=== PATIENT | male | born 1935 | race Caucasian/White ===

== ENCOUNTER 2024-01-02 06:00 | Day surgery (SDC) | payer OTHER, SELFPAY ==
[2024-01-02] VITALS (11 sets, daily range): BP systolic 91–123; BP diastolic 56–82; BMI 34.1
[2024-01-02] MEDS: LOW STRENGTH ASPIRIN 81 MG PO (07:15)
--- NOTE | 2024-01-02 08:28 | ITS.CL.CATH ---
Advertising Inserter - Catheterization
Cardiac Catheterization
Procedure Report:
LEFT HEART CATHETERIZATION
Date of Procedure: January 02, 2024
Procedures performed:
1: Coronary angiography
2: Left ventricular hemodynamic assessment
Primary Care Physician: Dr. Pato Diaz
Primary Special Officer: Dr. Kali Kessler
INDICATION: The patient is an 88-year-old man with a past medical history significant for pacemaker placement for third-degree AV block who presents with progressive symptomatic aortic stenosis. Echocardiography shows severe aortic valvular
stenosis with dropping LV systolic function. Ejection fraction was normal at 55 to 60% in July 2022. On the most recent echo from December 27 the LV function has dropped to 35 to 40%. The mean gradient across the aortic valve is 58 mmHg. There
is moderate to severe mitral regurgitation also. This is new as compared to no mitral regurgitation on July 2022 echo.
ACCESS: The patient was prepped and draped in usual sterile fashion. A 6 Mohawk sheath was placed in the right radial artery using the Seldinger over the wire technique.
HEMODYNAMIC FINDINGS (mmHg):
LV(s/d,EDP): 167/14, 22
Ao(s/d,m): 105/57, 75
Mean aortic valve gradient on pullback: 45 mmHg
ANGIOGRAPHIC FINDINGS:
Single-plane Left Ventriculography in DE [place] CRUZ Projection: Not done
Coronary Angiography:
Dominance: Right
Left Main: Normal
Left Anterior Descending: The left anterior descending artery is a medium to large caliber vessel that gives rise to 1 major fairly large diagonal branch which takes off from the midportion. These vessels have mild luminal irregularities with no
focal obstructive disease.
Left Circumflex: The circumflex is a relatively large nondominant system that gives rise to a very large bifurcating first obtuse marginal branch. These vessels are widely patent.
Right Coronary: The right coronary artery is a medium caliber dominant vessel that gives rise to a small caliber posterior descending artery and posterior left ventricular branch system. These vessels are widely patent.
Fluoroscopy Time (min): 1.8
Radiation Dose (mGy): 214
DAP (Gy.cm2): 14
Closure device: None. A TR band was applied for hemostasis at the right wrist.
Complications: None.
ASSESSMENT:
1: Very mild nonobstructive coronary artery disease.
2: Severe aortic valvular stenosis.
CONCLUSIONS and RECOMMENDATIONS:
1: Proceed with TAVR evaluation. Given the new LV systolic dysfunction along with RV pacing and development of severe MR, we may need to address the mitral valve and/or cardiac resynchronization therapy after treating his severe aortic stenosis.
Hopefully his EF and MR will improve post aortic valve intervention.
Josue Montero M.D.
Copy to: Dr. Pato Diaz
--- NOTE | 2024-01-02 13:20 | CONSULT.STRU ---
Consultation
-
Date/Time Consultation Requested: 01/02/2024 0900
Date/Time Consultation Performed: 01/02/2024 1000
Requesting Provider: Dr. Winston MD
Performing Provider: BRANDIE Marie
Reason for Consultation: Aortic Stenosis/ TAVR evaluation
Patient History
Physicians
Family Physician: Dr. Pato Diaz
Outpatient Oil Well Shooter: Dr. Kali Kessler
Primary Oil Well Shooter: Dr. Kali Kessler
History of Present Illness
Mr. Singh is a very pleasant 88yo gentleman with known history of aortic stenosis with progressive fatigue over the past 6 months. He denies chest pain, palpitations, PND, orthopnea and edema. He has had no heart failure admission. Main medical
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 In general he feels he is in good health. His echocardiogram was notable for aortic valve
stenosis, PG/M.6/57.6, ANGELINE :0.57, EF: 35-40%. He also has mild AI, Mod-Severe MR and Mild to moderate TR, Cardiac cath today with no obstructive CAD.
Reviewed the pathophysiology of aortic stenosis with the patient and his daughter. Explained the treatment options of SAVR and TAVR. Explained the TAVR evaluation process including follow up BMP, CT TAVR scan, CT surgery consult and Heart Team
discussion. Provided with script for BMP next week, script and appointment for CT TAVR, Consult appointment with Dr. Mclean and a copy of the TAVR education booklet with contact information. Allowed for and answered questions.
Past Medical History
Past Medical History: Valvular Disease (Critical Aortic Stenosis, Mild AI, Moderate to severe MR) and Other
Right BBB, AV Blocl
DJD
Osteoarthritis
Past Surgical History
Past Surgical History: Orthopedic (bilateral shoulder repair, bilateral carpel tunnel release, bilateral TKR, Right THR, back surgery) and Other
Lap choleycystectomy
Cataract extraction
excision of pilonidal cyst
[facility] 12/21/2020
Dental History
Dr. Cox - regular dental care
Family History
Mother: at Age (100yo) and Cause of (Alzheimers)
Father: at Age (77yo) and Cause of (gangrenous gallbladder/sepsis)
Social History
Alcohol: None
Drug: None
Tobacco: Former Smoker (quit 1962)
Personal:
Living: With Family ( and adult son)
Employment: Retired
Allergies
Allergy/AdvReac Type Severity Reaction Status Date / Time
adhesive Allergy Intermediate Rash Verified 01/02/24 06:31
Home Medications
�Medication �Instructions �Recorded �Confirmed �Type
Prevagen 1 cap PO DAILY 12/03/20 01/02/24 History
ascorbic acid (vitamin C) 500 mg 500 mg PO DAILY 12/03/20 01/02/24 History
tablet (Vitamin C)
aspirin 81 mg tablet,delayed 81 mg PO DAILY 12/03/20 01/02/24 History
release (Aspir-Low)
cholecalciferol (vitamin D3) 25 1,000 units PO DAILY 12/03/20 01/02/24 History
mcg (1,000 unit) tablet
multivitamin 1 ea PO DAILY 12/03/20 01/02/24 History
vitamin E (dl, acetate) 180 mg 400 units PO DAILY 12/03/20 01/02/24 History
(400 unit) capsule
STS%
STS %: 2.74%
Review of Systems
-
History Source: Patient and Family
General: Reports Fatigue; Denies Fever or Weight Loss
HEENT: Reports No Symptoms; Denies Visual Changes
Respiratory: Reports No Symptoms; Denies SOB, KEVIN, Asthma or PND
Cardiac: Reports No Symptoms; Denies Chest Pain, Palpitations or Edema
Abdomen/GI: Reports No Symptoms; Denies Abdominal Pain, Reflux, Nausea, Vomiting or Diarrhea
: Reports No Symptoms; Denies Dysuria, Frequency, Urgency or Hematuria
Musculoskeletal: Reports No Symptoms; Denies Edema
Skin: Reports No Symptoms; Denies Rash
Neurological: Reports No Symptoms; Denies CVA, TIA, Headaches, Syncope or Weakness
Vascular: Reports No Symptoms
Physical Exam
Vital Signs
Temp 97.4 F 01/02/24 06:22
Temp route: Oral 01/02/24 06:22
Pulse 69 01/02/24 11:10
Resp Rate 22 01/02/24 11:10
Blood pressure 120/62 01/02/24 11:10
Blood pressure extremity used: Left upper arm 01/02/24 10:55
Position: Sitting 01/02/24 10:55
MAP (cuff-Divya Monitor) 81 01/02/24 11:10
SaO2 95 01/02/24 11:10
Oxygen Mode of Delivery Room air 01/02/24 10:55
Can the patient verbally communicate their pain? Yes 01/02/24 10:55
Actual Weight 92.9 kg 01/02/24 06:30
Body Mass Index (BMI) 34.1 01/02/24 06:30
Labs
12/26/2023:
H/H: 16.7/50.2
Platelets: [id number]
BUN/Creat: 20/0.99
GFR: 74
Diagnostic Studies
ECHOCARDIOGRAM 12/28/2023
LVEF: 35-40%
Mild to moderate TR
Moderate to severe MR
Critical , MG 92.6/57.6, Peak velocity 4.81m/s, Mild AI
CARDIAC CATHETERIZATION 01/02/2024:
ACCESS: The patient was prepped and draped in usual sterile fashion. A 6 Czech sheath was placed in the right radial artery using the Seldinger over the wire technique.
HEMODYNAMIC FINDINGS (mmHg):
LV(s/d,EDP): 167/14, 22
Ao(s/d,m): 105/57, 75
Mean aortic valve gradient on pullback: 45 mmHg
ANGIOGRAPHIC FINDINGS:
Single-plane Left Ventriculography in [place] Projection: Not done
Coronary Angiography:
Dominance: Right
Left Main: Normal
Left Anterior Descending: The left anterior descending artery is a medium to large caliber vessel that gives rise to 1 major fairly large diagonal branch which takes off from the midportion. These vessels have mild luminal irregularities with no
focal obstructive disease.
Left Circumflex: The circumflex is a relatively large nondominant system that gives rise to a very large bifurcating first obtuse marginal branch. These vessels are widely patent.
Right Coronary: The right coronary artery is a medium caliber dominant vessel that gives rise to a small caliber posterior descending artery and posterior left ventricular branch system. These vessels are widely patent.
Fluoroscopy Time (min): 1.8
Radiation Dose (mGy): 214
DAP (Gy.cm2): 14
Closure device: None. A TR band was applied for hemostasis at the right wrist.
Complications: None.
ASSESSMENT:
1: Very mild nonobstructive coronary artery disease.
2: Severe aortic valvular stenosis.
CONCLUSIONS and RECOMMENDATIONS:
1: Proceed with TAVR evaluation. Given the new LV systolic dysfunction along with RV pacing and development of severe MR, we may need to address the mitral valve and/or cardiac resynchronization therapy after treating his severe aortic stenosis.
Hopefully his EF and MR will improve post aortic valve intervention.
Exam
General: Well Developed, Well Nourished, No Apparent Distress and Comfortable
HEENT: Normocephalic, Moist Mucous Membranes and PERRLA
Neck: Trachea Midline
Respiratory: Clear; Negative Wheezes, Crackles or Rhonchi
Cardiac: S1/S2, Regular Rhythm and Murmur (Grade III/, loudest LSB); Negative Rub or JVD
GI: Soft, Non Tender, Non Distended and Normal Bowel Sounds
Rectal: Deferred by Provider
Skin: Warm and Dry; Negative Rash
Neuro: AO x 3 and No Motor Deficits
Extremities: Pulses (+2 dp/pt pulses bilaterally); Negative Upper Level Edema or Lower Level Edema
Lymph: No Lymphadenopathy
Psych: Calm
Assessment / Plan
-
Severe Aortic stenosis:
��������������� Continue evaluation for TAVR
��������������� BMP 01/09/2024 at [facility]
��������������� CT TAVR scan 01/14/2024 at
��������������� CT surgery consult with Dr. Mclean 01/17/2024
��������������� Heart team discussion at [facility]
Dental Clearance
Data Reviewed
-
EKG: Report Reviewed by me (12/26/2023 A-sensed, V-paced, 67bpm)
Presser Automatic: Report Reviewed by me and Discussed with Physician
Echo: Report Reviewed by me
Labs: Labs Reviewed by me
Old Records: Reviewed (Dr. Kessler's cardiology office records)
Total Time Spent with Patient (in minutes): 45
== END 2024-01-02 11:55 | disposition home or self-care (01) ==
LOC: CATH 06:00
PROVIDERS: ATTENDING PHYSICIAN Internal Medicine Interventional Cardiology; FAMILY PHYSICIAN Family Medicine; PRIMARYCARE PHYSICIAN Family Medicine; REFERRING PHYSICIAN Internal Medicine Cardiovascular Disease
DX: I25.10 Atherosclerotic heart disease of native coronary artery without angina pectoris (principal); I08.0 Rheumatic disorders of both mitral and aortic valves; Z95.0 Presence of cardiac pacemaker; Z96.641 Presence of right artificial hip joint; Z87.891 Personal history of nicotine dependence
CPT/HCPCS: 93458; C1894; Q9967

== ENCOUNTER → 2024-01-14 08:07 | Outpatient (REF) | payer OTHER, SELFPAY | LOC: RAD 08:07 | PROVIDERS: ATTENDING PHYSICIAN Nurse Practitioner Adult Health; FAMILY PHYSICIAN Family Medicine | DX: I35.0 Nonrheumatic aortic (valve) stenosis (principal) | CPT/HCPCS: 74174; 75572; Q9967 ==

== ENCOUNTER 2024-02-14 09:06 | Inpatient (IN) | payer OTHER, SELFPAY ==
[2024-02-04 12:16] VITALS: BMI 33.9
[2024-02-04 12:59] LABS: Urine Albumin Negative (Neg - Trace); Urine Bilirubin Negative (Negative); Urine Character Clear (Clear); Urine Color Yellow; Urine Glucose Negative (Negative); Urine Ketone Negative (Negative); Urine Leukocyte Negative (Negative); Urine Nitrite Negative (Negative); Urine Occult Blood Negative (Negative); Urine Specific Gravity 1.005 (<1.030); Urine Urobilinogen Negative (Neg - 1+)
[2024-02-04 13:00] LABS: % Basophils 0.8 % (0-2); % Eosinophils 1.9 % (0-6); % Immature Granulocytes 0.3 % (0-0.5); % Lymphocytes 16.3 % (20.5-51.1); % Monocytes 9.9 % (1.7-9.3); % Neutrophils 70.8 % (42.2-75.2); Absolute Basophils 0.1 10^3/uL (0-0.2); Absolute Eosinophils 0.1 10^3/uL (0-0.7); Absolute Lymphocytes 1.2 10^3/uL (1.2-3.4); Absolute Monocytes 0.7 10^3/uL (0.1-0.6); Absolute Neutrophils 5.3 10^3/uL (1.4-6.5); Hemoglobin 16.3 g/dL (13.0-18.0); Mean Corp Hgb Conc. 34.7 g/dL (33.0-37.0); Mean Corpuscular Hgb 32.8 pg (27.0-31.0); Mean Corpuscular Volume 94.6 fL (80.0-94.0); Mean Platelet Volume 10.2 fL (7.4-10.4); Nucleated Red Blood Cells % 0 % (-); Platelet Count 297 10^3/uL (130-400); Red Blood Cell Count 4.97 10^6/uL (4.70-6.10); Red Cell Dist. Width 12.6 % (11.5-14.5); White Blood Cell Count 7.5 10^3/uL (4.8-10.8)
[2024-02-04 13:14] LABS: INR 1.16; PT 14.6 Sec (11.4-14.6)
[2024-02-04 13:15] LABS: APTT 34.6 Sec (23.4-35.0)
[2024-02-04 13:17] LABS: ALT (SGPT) 15 U/L (0-50); AST (SGOT) 40 U/L (17-59); Albumin 4.3 g/dl (3.5-5.0); Alkaline Phosphatase 73 U/L (38-126); Blood Urea Nitrogen 16 mg/dl (9-20); Calcium 9.7 mg/dl (8.4-10.2); Carbon Dioxide 23 mmol/L (22-30); Chloride 104 mmol/L (98-107); Direct Bilirubin 0.3 mg/dl (0.0-0.4); Estimated Creatinine Clearance 62 ml/min; Glucose 88 mg/dl (70-99); Potassium 4.8 mmol/L (3.5-5.1); Sodium 137 mmol/L (135-145); Total Bilirubin 0.8 mg/dl (0.2-1.3); eGFR > 60.00
[2024-02-04 13:25] LABS: NT-proBNP 6900 pg/ml
[2024-02-04 14:04] LABS: Glycohemoglobin (HgbA1c) 5.3 % (4.0-5.6)
--- NOTE | 2024-02-04 14:38 | CM ---
spoke to pt in PAT's, we discussed preop TAVR teaching. he is prev indep, lives with his and adult son in a 1 story home with 2 steps to enter. he has a rolling walker at home to use if ever needed. he has the TAVR educ book, soap and
instructions, he is agreeabletoa f/u visist fro the ct transitional care nurse after dc. plan is for TAVR 02/03, cm role explained and all questions answered.
--- NOTE | 2024-02-04 14:41 | CM ---
spoke to pt in PAT's, we discussed preop TAVR teaching. he is prev indep, lives with his and adult son in a 1 story home with 2 steps to enter. he has a rolling walker at home to use if ever needed. he has the TAVR educ book, soap and
instructions, he is agreeabletoa f/u visist fro the ct transitional care nurse after dc. plan is for TAVR 02/13, cm role explained and all questions answered.
[2024-02-14] VITALS (19 sets, daily range): BP systolic 89–130; BP diastolic 46–77; BMI 33.8
--- NOTE | 2024-02-14 08:58 | ITS.CL.TAVR ---
Glass Cutter Helper - TAVR Report
TAVR PRocedure
Procedure Report:
TRANSCATHETER AORTIC VALVE REPLACEMENT
Date of Procedure: February 14, 2020
Referring: Yayo Kessler and Josue Montero
Operators: Drs. Gayathri Aguilar MD and Tyrone Mclean MD
PROCEDURE PERFORMED:
1. Successful placement of 29 mm Medtronic Evolut FX valve via right common femoral artery.
PREPROCEDURE NYHA CLASS: II
DESCRIPTION OF PROCEDURE: The patient was referred for assessment of severe symptomatic aortic stenosis and following a comprehensive evaluation it was felt that transcatheter aortic valve replacement (TAVR) would be the most appropriate treatment.
Informed consent was obtained prior to the procedure. A 'time-out' was called and the procedural plan was verbally confirmed by anesthesia, surgery, perfusion, and skilled laborer staff.
Arterial and venous access were obtained in the left common femoral artery and vein using a micropuncture technique and 6 Fr. sheaths were inserted. A 5 Fr. transvenous pacing wire was then advanced to the right ventricle where excellent pacing
thresholds were obtained.
A 5 Fr. pigtail catheter was then advanced to the proximal ascending aorta / noncoronary cusp where angiography was performed to define the the cusp overlap view isolating the non-coronary cusp with overlap of the right and left coronary cusps. The
cusp overlap view was [place] 14/ CAU 33
Ultrasound guidance was then used to obtain arterial access in the left common femoral artery and a 4 Fr. dilated was inserted. Angiography was performed and the arteriotomy site appeared appropriate for preclosure with two Perclose devices. An 8
Brazilian sheath was then inserted back into the common femoral artery over a J-tipped guidewire. An AL1 catheter was then advanced to the proximal descending aorta. A Double-curve Zeuserrenetta 0.035' wire was placed in the proximal descending
thoracic aorta to facilitate delivery of a 14 Fr / 13 cm Cook sheath.
An AL1 catheter was then positioned just above the aortic valve and a 0.035' Straight tip wire probed the aortic valve and crossed the stenotic leaflets. The AL1 was then advanced to the mid left ventricle. A long J-wire was advanced to the left
ventricular apex and was followed to the apex with an angled pig-tail catheter and invasive LV pressure was checked with LVEDP elevated at 22 mmHg. The Double Curve Lunderquist was then positioned in the left ventricular apex. The Evolut FX stent
was inspected under fluoroscopy/cine while rotating the stent delivery system. The stent paddles were within the pocket and no significant crown overlap noted.
Balloon predilation was performed with rapid pacing using a HAILY 23mm balloon. The balloon was removed and the 14 Fr. sheath was exchanged for the Evolut InLine delivery system. The 29 mm Evolut FX TAVR was advanced across the stenotic leaflets.
The Evolut FX valve was slowly deployed in the leaflet overlap view until the stent flared achieving contact at 4-5mm below the noncoronary cusp. The stent continued to flared achieving contact with the left coronary cusp. The image intensifier
was rotated to an JACKSON position to remove parallax from the valve with continued valve deployment with controlled pacing. We transitioned quickly through the rumble strips on the InLine delivery sheath until the marker band was positioned just below
the paddle attachment. Angiography was performed. The valve structure was released from the delivery system when we were happy with the valve position. Post deployment angiography had only mild aortic insufficiency and a mean gradient of 8 mmHg.
The Evolut FX delivery system capsule was reunited to the body of the delivery system. The Evolut InLine sheath was removed and the Perclose knots were advanced to the arteriotomy site resulting in excellent hemostasis.
Fluoro Time (min): 15.2, Dose (mGy): 749.5, DAP (Gy.cm2) : 74.5
CONCLUSIONS:
1. Severe symptomatic aortic stenosis. Successful deployment of a 29 mm Evolut FX valve with minimal aortic insufficiency post procedure.
2. Successful arteriotomy closure with 2 Perclose devices.
3. Acute on chronic systolic and diastolic heart with LVEDP elevated at 22 mmHg
Copy to: Yayo Montero
Gayathri Aguilar MD, FACC, [facility]
[2024-02-14] MEDS: BACTROBAN 2% OINTMENT 1 APPLIC NASAL (10:07)
--- NOTE | 2024-02-14 11:51 | W.CVOR.SURPR ---
CVOR Surgeon Immed Pre Op
-
I have examined this patient prior to performance of the scheduled procedure.
The patient's condition is unchanged from the time of the dictated/written History and
Physical and the patient is able to undergo the scheduled procedure.
Full Rescue
TF TAVR
[2024-02-14 13:19] LABS: ACT-LR - POC 363 Seconds (116-155)
[2024-02-14] MEDS: ANCEF 10 IV (13:30)
--- NOTE | 2024-02-14 13:46 | W.PN.CT.SURG ---
CT Surgery Operative Note
-
OPERATIVE REPORT
Preoperative Diagnosis: Severe aortic valve stenosis, symptomatic
Postoperative Diagnosis: Same
Procedure(s) Performed: Right trans femoral TAVR with a 29 mm Medtronic Evolut FX device with balloon valvuloplasty
Date of Procedure: 02/14/2024
Comorbidities:
1. Severe symptomatic aortic stenosis
2. Moderate to moderately severe mitral valve insufficiency with mitral annular calcification
3. Acute on chronic congestive heart failure with depressed left ventricular ejection fraction of 35 to 40%
4. Pre-existing right bundle branch block
5. Osteoarthritis
6. Degenerative joint disease
Cardiac Surgeon: Tyrone Mclean MD, MS
Online Advertising Director: Gayathri Aguilar MD
Anesthesia: Conscious Sedation, Local
EBL: 100cc
Products: none
Implant: Medtronic Evolut FX 29mm TAVR Valve SN: [id number]
Indication(s) for Procedures: 88-year-old male with severe aortic stenosis. Symptomatic. Despite having a lower left ventricular ejection fraction at baseline, he was still able to mount a significant gradient of 93/58 mmHg with an ANGELINE calculated
to be 0.4 cm. His velocity was still over 4 m/s. CT-TAVR protocol revealed acceptable anatomy for a self-expanding TAVR valve.
Start time: 1245hrs
Deployment time: 1327hrs
End time: 1341hrs
Radiation Dose (mGy): 749.50
DAP (cm2.Gy): 74.4715
Fluoroscopy time (minutes): 15.2
Contrast volume (ml): 120
TAVR gradient (mmHg): 9mmHg (on Dobutrex)
Protamine Dose: 40mg
Final Valve Positionin-5mm:4-5mm
Findings: Preoperative LVEF was 35% and was 40-45% following TAVR with inotropic support. Starting the surgery he was started on Levophed as well as dobutamine for his lower left ventricular ejection fraction. He had evidence of acute on chronic
congestive heart failure with volume overload and decreased cardiac function. Function was overall somewhat improved without regional wall motion abnormalities or dyskinesia. The aortic valve was well seated without detectable PVL. The mean
gradient across the valve was 9 mmHg however he was on dobutamine at that time which was just turned off. The patient has a pre-existing permanent pacemaker implanted prior to TAVR. There was successful placement of 29 Evolut FX TAVR valve without
acute complications.
Access:
1. Device -right common femoral artery, perclose x 2
2. Pigtail -left femoral artery + 6Fr angioseal
3. Transvenous Pacer -left common femoral vein
Description of Procedure: The patient was taken to the corn lab technician. Their identity and procedure to be performed were verified and they were positioned supine on the corn lab technician table. Induction via conscious sedation with local analgesia. The patient was
then prepped and draped from chin to thigh in a sterile fashion. A preoperative time-out was performed with all members of the team present. Using fluoroscopy, bilateral femoral heads and their margins were identified. Arterial and venous access
were done with a micropuncture needle with Seldinger technique under ultrasound guidance. Test pacing revealed capture with excellent threshold. Angiography confirmed proper puncture site and femoral artery integrity. Two Per-Close devices were
used on the TAVR side. An AL1 catheter was used to deliver a extrastiff wire and insertion of the working sheath. An AL1 catheter with a straight stiff wire was used to access the LV. The valve was prepped and mounted on to the device carrier. An
ACT of >250 was achieved. We verified x 3 under fluoroscopy that the valve was mounted correctly with paddles in appropriate position. We then exchanged the AL for a J-wire followed by pigtail catheter. The pigtail was used to measure LVEDP which
was found to be 22 to 23 mmHg. This was then exchanged for a Lunderquist wire. We than set our parameters to achieve a co-planar view with the pigtail positioned in the NCC. We advanced the device with it's in-line sheath into the descending
thoracic aorta and over the arch into the root and positioned across the aortic valve. Contrast fluoroscopy was used to visualize the prosthesis across the valve. We performed a quick pre-deployment time out. We verified positioning based on the
pigtail and gentle contrast puffs. The valve was slowly deployed to just before annular contact. We are initially a little bit deep and so partially recaptured and pulled back on the entire delivery system. At this point he was hypotensive and so
we swung UZBEK in order to verify placement at the left coronary cusp. This was acceptable and so we continued until full deployment here under slow pacing. The deployment device was withdrawn into the descending thoracic aorta while maintaining
wire access across the valve. At this point his blood pressure did recover he did have some ventricular ectopy and runs of ventricular tachycardia and so 150 mg of amiodarone was given as a bolus. A transthoracic echocardiogram was performed . The
pigtail was re-positioned at the level of the crown of the valve and angiography revealed excellent placement and seating of the valve at the annulus. The device was removed from the groin as we cinched down the perclose devices while maintaining
wire access. There was acceptable hemostasis. The pigtail was repositioned into the descending/abdominal and runoff aortogram was performed. There was no significant stenosis or dissection of the bilateral iliofemoral systems with excellent runoff
to the SFAs. All wires were removed and perclose snugged and cut. There was acceptable hemostasis of bilateral groins.
All instrument, sponge, and needle counts were confirmed to be correct x 2 at the end of the operation. The patient was transferred to the cardiac intensive care unit in stable condition.
I, Dr. Tyrone Mclean, was present, scrubbed for, and performed all critical elements of this procedure.
Tyrone Mclean MD, MS
Cardiothoracic Surgeon
[facility]
This operative dictation was created using the J[employer]jiuweikang dictation system. Please excuse any grammatical, typographical, or 'sound alike' errors
--- NOTE | 2024-02-14 13:47 | W.PN.UPDATE ---
Update Note
Progress Note Update
Reviewed Mr. Singh with the heart team in the preTAVR SDM meeting and confirmed a 29 mm Evolut via right transfemoral access. Patient will resume aspirin post TAVR. LVEDP 22 mmHg. #29mm Evolut (serial# [id number]) successfully deployed via right
transfemoral access. Post implant MG 8mmHg.
[2024-02-14] MEDS: LEVOPHED 250 IV (14:00)
--- NOTE | 2024-02-14 15:40 | CM ---
Chart reviewed. Patient is in the OR today. Patient is independent of ADLS, lives with his and son in a 1 STH, 2 MENDEZ, ambulates with a rolling walker. Plan is for the patient to return home with CT Transitional RN. CM to follow
[2024-02-14] MEDS: ANCEF IV (17:11)
[2024-02-14] MEDS: LASIX 20 MG IV (18:40)
--- NOTE | 2024-02-14 19:25 | PTCARENOTE ---
Pt received from recovery area post TAVR. Pt c/o full bladder but being unable to pass urine, bladder scanned for 537mls, pt straight cath'd for 500mls. Pt able to void after bedrest ended without problem. Right femoral site dressing with some
oozing, dressing changed once. Left femoral dressing dry and intact, no sign of hematoma in either groin. Palpable PT pulses present. Pt OOB with minimal assistance, walked @100 feet in halls. Telemetry showed V Paced rhythm. Levophed infusion off
@16:15.
[2024-02-14] MEDS: ANCEF 5 IV (19:56)
--- NOTE | 2024-02-14 21:29 | PTCARENOTE ---
Pt rec'd at change of shift awake,alert oriented. normal neuro check,CHIKIS. B/l groin sites with DDI. oob freq to void post lasix given prior to evening shift. gait steady. call cordoba within reach.
--- NOTE | 2024-02-15 02:19 | W.PN.CT ---
Today's Communication / Plan
-
-pod #1
-no issues overnight
-av-paced rhythm with pacs
-diuresed with 20 iv Lasix on 02/13
-Echo today
-current meds (ASA, vitamins)
-encourage IS, OOB, ambulate
-possible d/c
Assessment / Plan
-
- Severe symptomatic - s/p R transfemoral TAVR with a 29 mm Medtronic Evolut FX device with balloon valvuloplasty on 02/14/24, pod #1
- TTE: The aortic valve was well seated without detectable PVL. The mean gradient across the valve was 9 mmHg
- Acute on chronic systolic congestive heart failure, LVEDP 22- treated with 20 iv Lasix
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
- Left ventricular ejection fraction of 35 to 40%
- Pre-existing RBBB
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
- Osteoarthritis
- Degenerative joint disease, s/p b/l TKR, R THR
Discussed patient care with: Nursing and Care Team
Subjective
Procedure
- s/p R transfemoral TAVR with a 29 mm Medtronic Evolut FX device with balloon valvuloplasty on 02/14/24
-
Date of Service: February 14, 2024
Objective Data
-
Lab Results
02/04/24 12:28
02/04/24 12:28
PT 14.6 Sec (11.4-14.6) 02/04/24 12:28
INR 1.16 02/04/24 12:28
APTT 34.6 Sec (23.4-35.0) 02/04/24 12:28
Vital Signs
Vital Signs
Temp Pulse Resp BP Pulse Ox
98.7 F 60 20 111/52 96
02/14/24 23:15 02/14/24 22:15 02/14/24 23:15 02/14/24 22:14 02/14/24 23:15
CT Intake/Output/Weight
02/14/24 02/14/24 02/15/24
06:59 18:59 06:59
Output Total 1000 / 1000
Balance -1000 / -1000
SaO2: 96
Physical Exam
-
General: Awake and AOx3
Cardiovascular: Regular rate & rhythm, No Murmurs and No Rub
Respiratory: Decreased Breath Sounds
Incision: Other (groins are cdi, soft, nontender, no hematoma b/l)
Extremities: No Edema (2+ DPs b/l)
Data Reviewed
-
Lab Results: Results Reviewed
Medications: Active Meds Reviewed
Chest X-Ray: Report Reviewed and Image Reviewed
ECG: Report Reviewed and Image Reviewed
[2024-02-15 04:20] VITALS: BP 97/63
[2024-02-15 04:32] VITALS: BMI 32.7
--- NOTE | 2024-02-15 04:42 | PTCARENOTE ---
Pt up Q2hrs to void. wt down significantly-charted. am labs and ecg completed. seen by PA this morning. B/l groin sites intact. small amt of blood noted on right femoral drsg; unchanged for last 6 hrs. Pt states little tenderness in right groin, no
palpable hematoma noted. neuro checks unchanged
[2024-02-15 04:43] LABS: Hematocrit 45.5 % (39.0-52.0); Hemoglobin 15.8 g/dL (13.0-18.0); Mean Corp Hgb Conc. 34.7 g/dL (33.0-37.0); Mean Corpuscular Hgb 32.2 pg (27.0-31.0); Mean Corpuscular Volume 92.9 fL (80.0-94.0); Mean Platelet Volume 9.9 fL (7.4-10.4); Platelet Count 234 10^3/uL (130-400); Red Cell Dist. Width 12.3 % (11.5-14.5); White Blood Cell Count 9.9 10^3/uL (4.8-10.8)
[2024-02-15 05:07] LABS: Blood Urea Nitrogen 21 mg/dl (9-20); Calcium 9.1 mg/dl (8.4-10.2); Carbon Dioxide 26 mmol/L (22-30); Chloride 104 mmol/L (98-107); Estimated Creatinine Clearance 54 ml/min; Glucose 94 mg/dl (70-99); Potassium 4.8 mmol/L (3.5-5.1); Sodium 137 mmol/L (135-145); eGFR > 60.00
[2024-02-15 06:47] VITALS: BP 110/51
[2024-02-15] MEDS: ASPIR LOW (ENTERIC COATED) 81 MG PO (07:52)
[2024-02-15] MEDS: VITAMIN E 400 UNITS PO (07:52)
[2024-02-15] MEDS: VITAMIN D3 (cholecalciferol) 25 MCG PO (07:52)
[2024-02-15] MEDS: VITAMIN C 500 MG PO (07:52)
[2024-02-15] MEDS: THERAGRAN 1 TABLET PO (07:52)
--- NOTE | 2024-02-15 08:08 | W.PN.ANS.POP ---
Anesthesia Post Operative
- Anesthesia Post Op Note
Vital Signs Stable-See Nursing Note: Yes
Airway Patent: Yes
Adequate Pain Control: Yes
Change in Mental Status: No
Current Postoperative Nausea & Vomiting: No
Anesthesia Complications: No
General Anesthetic Recall: No
Unplanned Admission: No
Post Op Hydration Adequate: Yes
--- NOTE | 2024-02-15 08:55 | W.DCSUMMARY ---
Discharge Summary
Discharge Data
Date of Admission: 02/14/24
Date of Discharge: 02/15/24
-
Pending Results: No
Hospital Course
Primary care physician: Pato Diaz
Outpatient air breaker operator: Yayo Kessler
Inpatient consultants: [facility] cardiology
Procedures:
1. Transcatheter aortic valve replacement
Primary Diagnosis:
1. Severe aortic stenosis
Secondary Diagnoses:
1. Moderate to moderately severe mitral valve insufficiency with mitral annular calcification
3. Acute on chronic systolic congestive heart failure with depressed left ventricular ejection fraction of 35-40%
4. Pre-existing right bundle branch block
5. History of [employer] dual-chamber permanent pacemaker
6. Osteoarthritis
7. Degenerative joint disease
8. 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
HPI: Tayo Singh is an 88-year-old male who was electively admitted on 02/14/2024 for TAVR
Hospital course: Patient underwent right trans femoral TAVR #29 mm Medtronic Evolut FX device with balloon valvuloplasty by Dr. Tyrone Mclean. LVEDP was 22 and patient was diuresed with 20 mg of IV Lasix. postprocedure TTE performed on 02/15/2024
reported LV EF of 40-45% by Normal right ventricular size and function. Mild mitral stenosis with Peak/mean gradients 11/4mmHg. Mild mitral regurgitation. Well seated TAVR Medtronic Evolut 29. Aortic valve gradients 18/13 mmHg. No aortic
regurgitation. Mild tricuspid regurgitation. Normal pericardium without effusion. Vital signs stable and patient discharged to home.
Home medication changes:
Discharge Plan
-
Patient Disposition: Home (Routine Discharge)
Discharge Diagnosis/Procedures: TF-TAVR
Condition: Good
Diet: Low Cholesterol and 2 Gram Sodium
Activity: As tolerated
Driving Restrictions: No driving for 1 week
Bathing Restrictions: OK to Shower
Others Tests: Please call Dr. Kessler's office and schedule a echocardiogram for 30 days following your TAVR procedure
Other Services: Cardiac Rehab
Wound Care: Please do not apply lotions, creams or powders to groin areas. Please monitor for increased pain, swelling, redness or drainage. Please notify your doctor if any occur.
Specialty Instructions: Weigh Daily- Call MD for wt gain/loss 3 lbs overnight/5 lbs in 1 week
Stand Alone Forms: DC Inst - TransFemoral (TAVR)
Referrals:
CT Transitional Care Nurse [Outside] (The Cardiothoracic Transitional Care Nurse will call you to set up a visit in 1-2 days.)
Yayo Kessler MD [Active] - 03/10/24 2:00 pm
Pato Diaz DO [Family Provider] -
Prescriptions:
New
acetaminophen 325 mg Tablet
650 mg PO Q4HPRN PRN (Reason: LI, mild pain, or fever >101F) Qty: 0 0RF
Continued
multivitamin 1 EACH tablet
1 ea PO DAILY
Patient Comments:
3 wks ago
ascorbic acid (vitamin C) [Vitamin C] 500 MG tablet
500 mg PO DAILY
Patient Comments:
3 wks ago
cholecalciferol (vitamin D3) 1,000 UNITS tablet
1,000 units PO DAILY
Patient Comments:
3 wks ago
vitamin E (dl, acetate) 400 UNITS capsule
400 units PO DAILY
Patient Comments:
3 wks ago
Prevagen
1 cap PO DAILY
Patient Comments:
3 wks ago
aspirin 81 mg Tablet,Delayed Release (Dr/Ec)
81 mg PO DAILY
Discharge Orders:
Discharge Patient (As Directed); Ordered 02/15/24
Ordered By: Nahomi Crespo
Care Plan Goals
Care Plan Goals:
Problem: Readiness for enhanced knowledge related to diagnosis and treatment plan
Goal: Understand your diagnosis and treatment plan needs, including medications if applicable.
Instructions: Know your diagnosis, underlying causes and treatment plan options, including medications if applicable. Consult with your health care team to learn about your diagnosis and treatment plan, including medications if applicable.
Discharge Date and Time
Print Language: HEBREW
--- NOTE | 2024-02-15 11:25 | W.PN.CARDCBS ---
Addendum entered and electronically signed by Gayathri Aguilar MD 02/15/24 13:27:
I saw and examined the patient.
The Dope Worker's note was reviewed and I agree with the note.
Comment: Patient is doing well this morning and does not offer any significant complaints. Overnight things were uneventful. He is out of bed into a chair this afternoon without significant issues
Vital signs and lab work reviewed. On exam patient is a well-appearing gentleman, regular rate, 2 out of 6 systolic ejection murmur, normal S1 and S2, lungs sound clear to auscultation bilaterally, no carotid bruits, abdomen is soft, nontender,
nondistended with active bowel sounds, bilateral groin access site with dressing in place which is clean, dry and intact without evidence of hematoma or bruit, warm extremities. ECG with a sensed, V paced rhythm.
Post TAVR echocardiogram: Mild to moderately reduced LV systolic function with global hypokinesis, LVEF of 40 to 45%, paradoxical septal motion consistent with RV pacemaker, normal RV size and function, mild mitral stenosis with mean transmitral
gradient of 4, mild mitral regurgitation, well-seated TAVR Medtronic evolute 29 mm with transaortic mean gradient of 13 mmHg without evidence of aortic regurgitation.
Recommendations:
1. Doing well postop day 1 post TAVR with Medtronic Evolut FX 29 mm valve.
2. Post TAVR echocardiogram as noted above.
3. No issues from a vascular standpoint on exam. ECG as noted above with a sensed V paced rhythm.
4. We will get him out of bed ambulating to make sure he tolerates this well. If no issues plan for discharge later today.
Gayathri Aguilar MD, [facility], [facility]
Original Note:
Today's Communication / Plan
-
stable post TAVR
DC, follow up arranged
Impression / Plan
-
PCP: Dr. Lindquist
Cardiology: Dr. Kessler
Impression:
Severe s/p TAVR 02/14/2024
s/p St. Abdirashid PPM 01/02/2024
Osteoarthritis
DDD
RBBB
Echo 02/15/2024: EF 40 to 45%, global hypokinesis, mild mitral stenosis with peak/mean gradients 11/4 mmHg, mild MR, well-seated TAVR with peak/mean gradients 18/13 mmHg, no AI, mild TR, estimated PAP 30 to 35 mmHg
Plan:
-s/p R transfemoral TAVR 02/14/2024.
-POD #1. Seen this morning and feeling well.
-Postop echo with stable EF of 40 to 45%. TAVR well-seated with no AI.
-Given a single dose of IV Lasix 20 mg postop on 02/14/2024. Appears euvolemic. Weight down 7 pounds if accurate to 196 pounds. Creat stable at 1.0.
-K stable at 4.8.
-Blood pressure and heart rate stable. No arrhythmias noted on telemetry.
-Continue aspirin 81 mg daily.
-Follow-up with Dr. Kessler arranged
Progress Note - Business Excellence Leader
Subjective
Date of Service: February 15, 2024
Doing well. No complaints.
Objective
Labs:
02/15/24 04:29
02/15/24 04:29
Labs
Hgb 15.8 g/dL (13.0-18.0) 02/15/24 04:29
Hct 45.5 % (39.0-52.0) 02/15/24 04:29
Plt Count 234 10^3/uL (130-400) 02/15/24 04:29
PT 14.6 Sec (11.4-14.6) 02/04/24 12:28
INR 1.16 02/04/24 12:28
APTT 34.6 Sec (23.4-35.0) 02/04/24 12:28
Sodium 137 mmol/L (135-145) 02/15/24 04:29
Potassium 4.8 mmol/L (3.5-5.1) 02/15/24 04:29
BUN 21 mg/dl (9-20) H 02/15/24 04:29
Creatinine 1.0 mg/dL (0.7-1.3) 02/15/24 04:29
Glucose 94 mg/dl (70-99) 02/15/24 04:29
Vital Signs and I&O:
Vital Signs
Temp Pulse Resp BP Pulse Ox
98.6 F 77 16 110/51 96
02/15/24 06:44 02/15/24 07:45 02/15/24 06:44 02/15/24 06:47 02/15/24 06:44
Vital Signs
Temp Pulse Resp BP Pulse Ox
98.6 F 77 16 110/51 96
02/15/24 06:44 02/15/24 07:45 02/15/24 06:44 02/15/24 06:47 02/15/24 06:44
Intake & Output
02/13/24 02/14/24 02/15/24 02/16/24
06:59 06:59 06:59 06:59
Intake Total 180 / 180
Output Total 1000 / 1000
Balance -1000 / -1000 180 / 180
Physical Exam
Physical Exam
GEN: No distress, awake, alert, oriented x3
HEENT: supple, anicteric, mmm
LUNGS: CTA b/l, no wheezes/rales
CV: Reg, S1/S2,no murmur
EXT: No clubbing, cyanosis, or edema
NEURO: Gross non-focal
SKIN: Warm, dry, no rash
[2024-02-15 11:40] VITALS: BP 131/70; BP 147/83; PULSE 93; O2SAT 97
--- NOTE | 2024-02-15 11:41 | PN.CDI ---
CDI
- -
CDI:
Physician Documentation Request
Admit Date: 02/14/24 09:06
Dear Doctor Caridad,
Patient underwent TAVR 02/13.
physical laboratory assistant report provides a diagnosis of Acute on chronic systolic and diastolic heart failure
02/14 CT note states 'Acute on chronic systolic congestive heart failure'
In an attempt to clarify potential conflicting documentation, please clarify the type of heart failure.
Type
Systolic
Combined Systolic/Diastolic
Other
Use of terms such as suspected, likely, concern for, or probable (associated with a specific diagnosis that is being evaluated, monitored, or treated as if it exists) are acceptable and can be coded in the inpatient setting, when documented at the
time of discharge.
Thank you,
Vanessa Griffiths RN, BSN
CDI Specialist
[place] text
Please use your independent medical judgment in providing your response.
[2024-02-15 11:45] VITALS: BP 87/72
[2024-02-15 11:47] VITALS: BP 131/70
[2024-02-15 11:53] VITALS: BP 147/83
--- NOTE | 2024-02-15 15:02 | PTCARENOTE ---
Pt denies nay discomfort. CXR and Echo done. Telemetry and IV device removed. Discharge instructions reviewed with pt and his daughter regarding activity and driving restrictions, wound care, medications , reporting cares and concerns and follow up
appt's. Very good understanding verbalized. Pt escorted out via wheelchair and discharged to home.
== END 2024-02-15 13:35 | disposition home or self-care (01) | DRG 266 ==
LOC: IVU 09:06
PROVIDERS: Physician Assistant Surgical; ADMITTING PHYSICIAN Thoracic Surgery (Cardiothoracic Vascular Surgery); FAMILY PHYSICIAN Family Medicine
PROC: 02RF38Z Replacement of Aortic Valve with Zooplastic Tissue, Percutaneous Approach (ICD-10-PCS; 2024-02-14)
DX: I08.0 Rheumatic disorders of both mitral and aortic valves (principal); I50.23 Acute on chronic systolic (congestive) heart failure; I47.20 Ventricular tachycardia, unspecified; I45.10 Unspecified right bundle-branch block; M19.90 Unspecified osteoarthritis, unspecified site; Z79.82 Long term (current) use of aspirin
CPT/HCPCS: 93308; 33361; 36415; 71045; 71046; 80048; 80053; 81003; 82248; 83036; 83880; 85025; 85027; 85347; 85610; 85730; 86850; 86900; 86901; 87070; 93005; 93306; 93321; 93325; C1760; C1769; C1894; Q9967